=== PATIENT | male | born 1970 | race Hispanic/Latino ===

== ENCOUNTER 2017-02-05 17:17 | Emergency (ER) | payer SELFPAY ==
[2017-02-05 17:18] VITALS: BMI 42.5
[2017-02-05 18:52] VITALS: BP 181/95; PULSE 86; RESP 18; TEMP 98.5; O2SAT 98
--- NOTE | 2017-02-05 19:57 | C.PDOC ---
History Of Present Illness Patient is a 46 year old male who presents to the ER with a complaint of digitally reproducible sternal chest pain. Patient reports he had open heart surgery done 6 weeks ago. 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 Patient has good compliance with medications. Patient denies fever, chills or SOB. Time Seen by Provider: 02/05/17 19:43 Chief Complaint (Nursing): Chest Pain History Per: Patient History/Exam Limitations: no limitations Onset/Duration Of Symptoms: Hrs Current Symptoms Are (Timing): Still Present Location Of Injury: Anterior: Chest Quality Of Symptoms: Painful Recent travel outside of the [place]: No Past Medical History Reviewed: Historical Data, Nursing Documentation, Vital Signs Vital Signs: Last Vital Signs Temp 98.5 F 02/05/17 18:46 Pulse 86 02/05/17 18:46 Resp 18 02/05/17 18:46 BP 181/95 H 02/05/17 18:46 Pulse Ox 98 02/05/17 19:58 - Medical History PMH: Arthritis (GOUT), Depression, Diabetes, Deep Vein Thrombosis (left arm), Fractures (right hand fx pt had sx with pinning), HTN, Sleep Apnea Surgical History: 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) - [facility] Procedures APPLICATION OF SPLINT (04/07/04) INDIVIDUAL PSYCHOTHERAPY, COGNITIVE-BEHAVIORAL (08/13/16) INDIVIDUAL PSYCHOTHERAPY, SUPPORTIVE (08/13/16) INJECT ANTICOAGULANT (07/30/12) INJECT/INFUSE NEC (04/15/07) NON-INVASIVE MECHANICAL VENTILATION (06/13/14) OTHER CAST APPLICATION (04/05/13) OTHER SKIN & SUBQ I D (06/07/14) Family History: States: Unknown Family Hx - Social History Hx Tobacco Use: No Hx Alcohol Use: No Hx Substance Use: Yes (stopped 5 monthts ago) Review Of Systems Constitutional: Negative for: Fever, Chills Cardiovascular: Positive for: Chest Pain Respiratory: Negative for: Shortness of Breath Physical Exam - Physical Exam Appears: Well, Non-toxic Skin: Normal Color, Warm, Dry Head: Atraumatic, Normacephalic Oral Mucosa: Moist Chest: Tenderness (To midline sternotomy scar), No Other (Erythema) Cardiovascular: Rhythm Regular, No Murmur Respiratory: Normal Breath Sounds, No Rales, No Rhonchi, No Wheezing Gastrointestinal/Abdominal: Soft, No Tenderness Neurological/Psych: Oriented x3, Normal Speech, Normal Cognition ED Course And Treatment ECG: Interpreted By Me, Viewed By Me Interpretation Of ECG: Q waves at II III and aVF. O2 Sat by Pulse Oximetry: 98 Medical Decision Making Medical Decision Making: chest discomfort @ sternal suture/costochondral areas Chronic since 3V CABG 6 wks ago (?) Unclear how this obese man is climbing cranes. [place] [employer] reviewed 3 Rx's from 3 prescribers, most recently 02/02/17 in [place] immediately confrontational and foul mouthed when denied narcotics/dilaudid Declined Ice pack/motrin NAD on dc. Disposition Doctor Will See Patient In The: Office Counseled Patient/Family Regarding: Studies Performed, Diagnosis - Disposition Referrals: [facility] [Outside] Disposition: ELOPEMENT - ER ONLY Disposition Time: 19:55 Condition: GOOD Additional Instructions: continue ice packs 1/2 hour per hour, nothing hot. Motrin 600 mg every 6 h as needed follow-up with your PMD or Thoracic surgeon for further eval of your midline sternotomy wound care. Instructions: Chronic Wound Care (ED) - Clinical Impression Clinical Impression: Chest discomfort - Scribe Statement The provider has reviewed the documentation as recorded by the Scribdanika Ayala All medical record entries made by the Scribe were at my direction and personally dictated by me. I have reviewed the chart and agree that the record accurately reflects my personal performance of the history, physical exam, medical decision making, and the department course for this patient. I have also personally directed, reviewed, and agree with the discharge instructions and disposition.
== END 2017-02-05 20:00 | disposition left against medical advice (07) ==
LOC: C.ER 17:17
DX: R07.89 Other chest pain (principal)